=== PATIENT | female | born 1935 | race Caucasian/White ===

== ENCOUNTER 2022-05-14 04:00 | Inpatient (IN) | payer OTHER, BC ==
[2022-05-10 10:45] VITALS: BMI 28.8
[2022-05-14] MEDS ORDERED: THROMBIN (BOVINE) 20,000 UNIT VIAL TP ONE (07:21)
[2022-05-14] MEDS ORDERED: BUPIVACAINE HCL/PF 0.5% (5MG/ML) 10 ML VIAL ONE (07:22)
[2022-05-14] MEDS ORDERED: GENTAMICIN SO4 80 MG/2 ML VIAL ONE (07:22)
[2022-05-14] MEDS ORDERED: VANCOMYCIN 1,000 MG VIAL (RESTRICTED TO ID ONLY) ONE ×2 (07:22→08:21)
[2022-05-14] MEDS ORDERED: BUPIVACAINE LIPOSOME/PF (EXPAREL) 266 MG/20 ML VIAL ONE (07:22)
[2022-05-14] MEDS ORDERED: LIDOCAINE 1%/EPI 1:100000 (20 ML MULTI DOSE VIAL) ONE (07:22)
[2022-05-14] MEDS ORDERED: ceFAZolin SODIUM 1 GM VIAL IVPB ONE ×2 (08:02→08:40)
[2022-05-14] MEDS ORDERED: VANCOMYCIN 1 GM in D5W (PRE-DOCKED) 1,000 MG/250 ML IVPB ONE ×3 (08:02→09:54)
[2022-05-14] MEDS ORDERED: THROMBIN (BOVINE) 5,000 UNIT VIAL TP ONE ×2 (08:02→09:30)
[2022-05-14] MEDS ORDERED: HYDROGEN PEROXIDE 473 ML PO ONE ×2 (08:03→09:52)
[2022-05-14] MEDS ORDERED: GENTAMICIN SO4 80 MG/2 ML VIAL IVPB ONE ×2 (08:03→09:52)
[2022-05-14] MEDS ORDERED: PROMETHAZINE HCL 25 MG/1 ML VIAL IVPUSH PRN (08:05)
[2022-05-14] MEDS ORDERED: ONDANSETRON 4 MG/2 ML VIAL IVPUSH PRN ×3 (08:05→11:47)
[2022-05-14] MEDS ORDERED: DEXAMETHASONE SOD PHOSPHATE 4 MG/1 ML VIAL IVPUSH PRN (08:05)
[2022-05-14] MEDS ORDERED: PROMETHAZINE HCL 25 MG/1 ML VIAL IVPB PRN (08:05)
[2022-05-14] MEDS ORDERED: PROPOFOL 20 ML ONE ×2 (08:09)
[2022-05-14] MEDS ORDERED: MIDAZOLAM HCL 2 MG/2 ML SINGLE DOSE VIAL ONE (08:09)
[2022-05-14] MEDS ORDERED: ROCURONIUM BROMIDE 50 MG/5 ML SYRINGE ONE (08:09)
[2022-05-14] MEDS ORDERED: ceFAZolin SODIUM 1 GM VIAL ONE ×2 (08:10→17:42)
[2022-05-14] MEDS ORDERED: SODIUM CHLORIDE 0.9% P/F 10 ML VIAL IJ ONE ×2 (08:10→08:11)
[2022-05-14] MEDS ORDERED: LIDOCAINE HCL/PF 2% SDV 5ML VIAL ONE (08:10)
[2022-05-14] MEDS ORDERED: LACTATED RINGERS SOLUTION 1,000 ML IV SCH (08:15)
[2022-05-14] MEDS ORDERED: HYDROmorphone *PCA* 10MG/50ML DISP.SYRIN PCA SCH (08:15)
[2022-05-14 08:21] LABS: INR 1.2 (0.83-1.09); PROTHROMBIN TIME (PATIENT) 13.8 SEC (9.7-13.0)
[2022-05-14 08:24] LABS: ACTIVATED PTT 26.7 SECONDS (25.2-36.5)
[2022-05-14] MEDS ORDERED: TRANEXAMIC ACID 1000 MG/10 ML VIAL ONE (08:41)
[2022-05-14] MEDS ORDERED: BUPIVACAINE HCL/PF 0.5% (5MG/ML) 10 ML VIAL IJ ONE ×2 (09:52→11:00)
[2022-05-14] MEDS ORDERED: BUPIVACAINE LIPOSOME/PF (EXPAREL) 266 MG/20 ML VIAL NR ONE ×2 (09:52→11:00)
[2022-05-14] MEDS ORDERED: NEOSTIGMINE METHYLSULFATE 0.5 MG/1 ML - 10 ML MDV ONE (10:49)
[2022-05-14] MEDS ORDERED: GLYCOPYRROLATE 0.2 MG/1 ML VIAL ONE (10:49)
[2022-05-14] MEDS ORDERED: HYDROmorphone *PCA* 10MG/50ML DISP.SYRIN ONE (11:24)
[2022-05-14] MEDS ORDERED: diphenhydrAMINE HCL 25 MG CAPSULE (FP) PO PRN (11:47)
[2022-05-14] MEDS ORDERED: oxyCODONE HCL 5 MG TABLET PO PRN (11:47)
[2022-05-14] MEDS ORDERED: morphine SULFATE 4 MG/ML VIAL IVPUSH PRN (11:47)
[2022-05-14] MEDS ORDERED: HEPARIN NA (PORCINE) 5,000 UNITS/ML 1ML VIAL SQ SCH (12:00)
[2022-05-14] MEDS: DOCUSATE SODIUM 100 MG CAPSULE (FP) PO SCH ×2 (14:10→22:02)
[2022-05-14] MEDS ORDERED: DEXTROSE 5%-WATER - 50 ML IVPB ONE (17:42)
[2022-05-14] MEDS: oxyCODONE HCL 5 MG TABLET PO PRN ×2 (18:14→22:07)
[2022-05-14] MEDS: CEFAZOLIN 1 GM in DEXTROSE 5%-WATER - 1 GM/50 ML IVPB IVPB SCH (18:14)
[2022-05-14] MEDS ORDERED: PATIENT'S OWN MEDICATION (NON-FORMULARY) (Pravastatin Sodium 20 MG Tablet) PO SCH (22:00)
[2022-05-14] MEDS: metoPROLOL SUCCINATE 25 MG TAB.SR.24H (FP) PO SCH (22:01)
[2022-05-14] MEDS: ROSUVASTATIN CA 10 MG TABLET PO SCH (22:02)
[2022-05-15] MEDS ORDERED: ceFAZolin SODIUM 1 GM VIAL ONE ×3 (03:40→17:40)
[2022-05-15] MEDS ORDERED: DEXTROSE 5%-WATER - 50 ML IVPB ONE ×3 (03:41→17:40)
[2022-05-15] MEDS: CEFAZOLIN 1 GM in DEXTROSE 5%-WATER - 1 GM/50 ML IVPB IVPB SCH ×3 (03:54→17:56)
[2022-05-15] MEDS: HEPARIN NA (PORCINE) 5,000 UNITS/ML 1ML VIAL SQ SCH ×3 (06:28→22:10)
[2022-05-15] MEDS: DOCUSATE SODIUM 100 MG CAPSULE (FP) PO SCH ×3 (06:28→22:11)
[2022-05-15] MEDS: oxyCODONE HCL 5 MG TABLET PO PRN ×2 (07:49→15:16)
[2022-05-15 09:04] LABS: HEMATOCRIT 33.6 % (32.4-45.2); MCH 28.4 pg (25.7-33.7); MCHC 32.7 g/dl (32.0-36.0); MEAN CELL VOLUME 86.6 fl (80-96); PLATELET COUNT 258 10^3/uL (134-434); RBC 3.87 M/mm3 (3.60-5.2); RDW 17.5 % (11.6-15.6); WHITE BLOOD COUNT 12.5 K/mm3 (4.0-10.0)
[2022-05-15] MEDS: FERROUS SO4 325 MG TABLET (FP) PO SCH (09:21)
[2022-05-15] MEDS: LOSARTAN POTASSIUM 50 MG TABLET PO SCH (09:21)
[2022-05-15] MEDS: metoPROLOL SUCCINATE 25 MG TAB.SR.24H (FP) PO SCH ×2 (09:21→22:10)
[2022-05-15] MEDS: amLODIPine BESYLATE 5 MG TABLET (FP) PO SCH (09:21)
[2022-05-15] MEDS: FOLIC ACID 1 MG TABLET (FP) PO SCH (09:21)
[2022-05-15 09:33] LABS: BLOOD UREA NITROGEN 23.1 mg/dL (7-18)
[2022-05-15 09:36] LABS: CREATININE 0.9 mg/dL (0.55-1.3)
[2022-05-15] MEDS ORDERED: PATIENT'S OWN MEDICATION (NON-FORMULARY) (Losartan Potassium 100 MG) PO SCH (10:00)
[2022-05-15 11:54] LABS: ALBUMIN 3.5 g/dl (3.4-5.0)
[2022-05-15 11:58] LABS: BILIRUBIN,TOTAL 0.4 mg/dL (0.2-1); TOT PROT 7.5 g/dl (6.4-8.2)
[2022-05-15] MEDS ORDERED: SODIUM CHLORIDE 500 ML IV STA (17:15)
[2022-05-15] MEDS ORDERED: WARFARIN SODIUM 5 MG PO SCH (22:00)
[2022-05-15] MEDS: ROSUVASTATIN CA 10 MG TABLET PO SCH (22:10)
[2022-05-16] MEDS: DOCUSATE SODIUM 100 MG CAPSULE (FP) PO SCH (05:42)
[2022-05-16 06:54] VITALS: BP 145/84; PULSE 88; RESP 17; TEMP 98.3
[2022-05-16 09:09] LABS: BASO % 0.1 % (0-2.0); HEMATOCRIT 34.6 % (32.4-45.2); HEMOGLOBIN 11.3 GM/dL (10.7-15.3); LYMPH % 4.1 % (8-40); MCHC 32.6 g/dl (32.0-36.0); MEAN CELL VOLUME 85.9 fl (80-96); MEAN PLT VOLUME 7.8 fl (7.5-11.1); MONO % 6.4 % (3.8-10.2); NEUT % 89.4 % (42.8-82.8); PLATELET COUNT 256 10^3/uL (134-434); RBC 4.03 M/mm3 (3.60-5.2); RDW 17.6 % (11.6-15.6); WHITE BLOOD COUNT 14.5 K/mm3 (4.0-10.0)
[2022-05-16] MEDS: oxyCODONE HCL 5 MG TABLET PO PRN (09:36)
[2022-05-16] MEDS: LOSARTAN POTASSIUM 50 MG TABLET PO SCH (09:38)
[2022-05-16] MEDS: FERROUS SO4 325 MG TABLET (FP) PO SCH (09:39)
[2022-05-16] MEDS: FOLIC ACID 1 MG TABLET (FP) PO SCH (09:39)
[2022-05-16] MEDS: amLODIPine BESYLATE 5 MG TABLET (FP) PO SCH (09:39)
[2022-05-16] MEDS: metoPROLOL SUCCINATE 25 MG TAB.SR.24H (FP) PO SCH (09:40)
[2022-05-16 09:57] LABS: CALCIUM 9.3 mg/dL (8.5-10.1)
[2022-05-16 09:58] LABS: ALBUMIN 3.5 g/dl (3.4-5.0); BLOOD UREA NITROGEN 13.1 mg/dL (7-18)
[2022-05-16 10:01] LABS: CREATININE 0.8 mg/dL (0.55-1.3)
[2022-05-16 10:03] LABS: BILIRUBIN,TOTAL 0.8 mg/dL (0.2-1)
[2022-05-16] MEDS ORDERED: WARFARIN NA 5 MG TABLET PO SCH (18:00)
== END 2022-05-16 13:56 | disposition home health service (06) | DRG 27 ==
LOC: EDUNIT# 04:00 → J2C 04:00 → EDBD 08:00 → J8W 13:23
PROVIDERS: ADMIT Neurological Surgery; ATTEND Nurse Practitioner Acute Care
PROC: 00BX0ZZ Excision of Thoracic Spinal Cord, Open Approach (ICD-10-PCS; 2022-05-14)
PROC: 00QT0ZZ Repair Spinal Meninges, Open Approach (ICD-10-PCS; 2022-05-14)
PROC: 0RG6071 Fusion of Thoracic Vertebral Joint with Autologous Tissue Substitute, Posterior Approach, Posterior Column, Open Approach (ICD-10-PCS; 2022-05-14)
PROC: 01N80ZZ Release Thoracic Nerve, Open Approach (ICD-10-PCS; 2022-05-14)
PROC: 4A1004G Monitoring of Central Nervous Electrical Activity, Intraoperative, Open Approach (ICD-10-PCS; 2022-05-14)
PROC: 00U20KZ Supplement Dura Mater with Nonautologous Tissue Substitute, Open Approach (ICD-10-PCS; principal; 2022-05-14 08:00)
DX: D32.1 Benign neoplasm of spinal meninges (principal); N18.30 Chronic kidney disease, stage 3 unspecified; M43.8X9 Other specified deforming dorsopathies, site unspecified; E78.5 Hyperlipidemia, unspecified; I25.10 Atherosclerotic heart disease of native coronary artery without angina pectoris; I12.9 Hypertensive chronic kidney disease with stage 1 through stage 4 chronic kidney disease, or unspecified chronic kidney disease; N18.9 Chronic kidney disease, unspecified; I48.91 Unspecified atrial fibrillation; I27.20 Pulmonary hypertension, unspecified; G89.18 Other acute postprocedural pain
CPT/HCPCS: 36415; 72128-TC; 76000-TC-FY; 80048; 80053; 83735; 85025; 85027; 85610; 85730; 86850; 86900; 86901; 88307-TC; 88331-TC; 94010; 94760; 97116-GP; 97161-GP; J1644

== ENCOUNTER 2022-05-20 12:46 | Inpatient (IN) | payer OTHER, BC ==
[2022-05-20 13:46] LABS: BASO % 0.1 % (0-2.0); EOS % 0.1 % (0-4.5); LYMPH % 5.2 % (8-40); MCHC 32.5 g/dl (32.0-36.0); MEAN CELL VOLUME 86.3 fl (80-96); MEAN PLT VOLUME 7.8 fl (7.5-11.1); MONO % 6.2 % (3.8-10.2); NEUT % 88.4 % (42.8-82.8); PLATELET COUNT 285 10^3/uL (134-434); RBC 4.28 M/mm3 (3.60-5.2); RDW 17.2 % (11.6-15.6); WHITE BLOOD COUNT 19.1 K/mm3 (4.0-10.0)
[2022-05-20 13:54] LABS: INR 1.55 (0.83-1.09); PROTHROMBIN TIME (PATIENT) 17.9 SEC (9.7-13.0)
[2022-05-20 13:57] LABS: ACTIVATED PTT 25.3 SECONDS (25.2-36.5)
[2022-05-20 14:12] LABS: CREATININE 3.9 mg/dL (0.55-1.3)
[2022-05-20 14:13] LABS: BILIRUBIN,TOTAL 0.9 mg/dL (0.2-1); TOT PROT 7.3 g/dl (6.4-8.2)
[2022-05-20 14:20] LABS: LACTIC ACID 3.5 mmol/L (0.4-2.0)
[2022-05-20 14:21] LABS: ALBUMIN 2.6 g/dl (3.4-5.0); BLOOD UREA NITROGEN 58.4 mg/dL (7-18); CALCIUM 7.9 mg/dL (8.5-10.1)
[2022-05-20] MEDS ORDERED: SODIUM CHLORIDE 1,000 ML IV STA (14:45)
[2022-05-20] MEDS ORDERED: ACETAMINOPHEN 325 MG TABLET (FP) PO PRN (15:26)
[2022-05-20 16:14] LABS: EPI CELLS 5 /uL (0-25.1); HYALINE CASTS 3 /uL (0-3.1); PH,URINE 5.5 (5.0-8.0); URINE APPEARANCE CLEAR; URINE BACTERIA 0 /uL (0-1359); URINE BILIRUBIN NEGATIVE (NEGATIVE); URINE COLOR YELLOW; URINE GLUCOSE (UA) NEGATIVE (NEGATIVE); URINE KETONE NEGATIVE (NEGATIVE); URINE LEUK ESTERASE NEGATIVE (NEGATIVE); URINE NITRITE NEGATIVE (NEGATIVE); URINE PROTEIN 1+ (NEGATIVE); URINE UROBILINOGEN 0.2 mg/dL (0.2-1.0); URINE WBC 7 /uL (0-25.8)
[2022-05-20] MEDS ORDERED: VANCOMYCIN 1 GM in D5W (PRE-DOCKED) 1,000 MG/250 ML IVPB ONE (16:15)
[2022-05-20] MEDS ORDERED: PIPERACILLIN/TAZOB 4.5 GM 4.5 GM in DEXTROSE 5%-WATER 100 ML IVPB ONE (16:18)
[2022-05-20 16:20] LABS: URINE RBC 53.7 /uL (0-23.9)
[2022-05-20] MEDS ORDERED: PIPERACILLIN/TAZOB 4.5 GM 4.5 GM/100 ML BAG IVPB ONE (16:21)
[2022-05-20] MEDS ORDERED: VANCOMYCIN/WATER FOR INJ (PEG) 1,000 MG/200 ML BAG IVPB ONE (16:21)
[2022-05-20] MEDS: INSULIN SLIDING SCALE (NOVOLOG) 1 VIAL SQ SCH ×2 (16:27→22:54)
[2022-05-20] MEDS ORDERED: SODIUM CHLORIDE 1,000 ML IV SCH (17:15)
[2022-05-20] MEDS ORDERED: WARFARIN SODIUM 5 MG PO SCH (17:45)
[2022-05-20] MEDS: SODIUM CHLORIDE 1,000 ML IV SCH (17:56)
[2022-05-20] MEDS ORDERED: METOPROLOL TARTRATE 5 MG/5 ML VIAL IVPUSH PRN (19:26)
[2022-05-20 20:31] LABS: LACTIC ACID 3.2 mmol/L (0.4-2.0)
[2022-05-20 21:45] LABS: BLOOD UREA NITROGEN 56.4 mg/dL (7-18)
[2022-05-20 21:48] LABS: CREATININE 2.8 mg/dL (0.55-1.3)
[2022-05-20 22:28] VITALS: BMI 28.4
[2022-05-20] MEDS ORDERED: ACETAMINOPHEN 325 MG TABLET (FP) ONE (22:47)
[2022-05-20] MEDS ORDERED: ATORVASTATIN CA 10 MG TABLET (FP) ONE (22:47)
[2022-05-20] MEDS ORDERED: DOCUSATE SODIUM 100 MG CAPSULE (FP) PO ONE (22:47)
[2022-05-20] MEDS: ATORVASTATIN CA 10 MG TABLET (FP) PO SCH (22:54)
[2022-05-20] MEDS: DOCUSATE SODIUM 100 MG CAPSULE (FP) PO SCH (22:54)
[2022-05-20] MEDS ORDERED: POTASSIUM CHLORIDE ORAL LIQUID 20 MEQ/15 ML PO ONE (23:02)
[2022-05-21] MEDS ORDERED: PIPERACILLIN/TAZOB 2.25 GM 2.25 GM/50 ML BAG IVPB ONE (04:01)
[2022-05-21] MEDS ORDERED: POTASSIUM CHLORIDE ORAL LIQUID 20 MEQ/15 ML ONE (04:01)
[2022-05-21] MEDS: PIPERACILLIN/TAZOB 2.25 GM 2.25 GM in DEXTROSE 5%-WATER - 50 ML IVPB SCH ×4 (04:09→20:00)
[2022-05-21] MEDS: SODIUM CHLORIDE 1,000 ML IV SCH ×2 (04:54→22:00)
[2022-05-21 06:46] LABS: HEMATOCRIT 30.7 % (32.4-45.2); MCHC 32.6 g/dl (32.0-36.0); MEAN CELL VOLUME 85.7 fl (80-96); MEAN PLT VOLUME 7.7 fl (7.5-11.1); PLATELET COUNT 221 10^3/uL (134-434); RBC 3.58 M/mm3 (3.60-5.2); RDW 17.5 % (11.6-15.6); WHITE BLOOD COUNT 16.6 K/mm3 (4.0-10.0)
[2022-05-21] MEDS: INSULIN SLIDING SCALE (NOVOLOG) 1 VIAL SQ SCH ×4 (06:47→23:12)
[2022-05-21] MEDS: DOCUSATE SODIUM 100 MG CAPSULE (FP) PO SCH ×3 (06:47→22:56)
[2022-05-21 07:05] LABS: CHLORIDE 106 mmol/L (98-107); SODIUM 138 mmol/L (136-145)
[2022-05-21 07:08] LABS: ALBUMIN 2.1 g/dl (3.4-5.0); ANION GAP 11 MMOL/L (8-16); BLOOD UREA NITROGEN 52.9 mg/dL (7-18); CO2 21 mmol/L (21-32); GLUCOSE,RANDOM 105 mg/dL (74-106)
[2022-05-21 07:11] LABS: SGOT/AST 69 U/L (15-37); SGPT/ALT 29 U/L (13-61)
[2022-05-21 07:13] LABS: BILIRUBIN,TOTAL 0.7 mg/dL (0.2-1); TOT PROT 5.7 g/dl (6.4-8.2)
[2022-05-21 07:14] LABS: ALK PHOS 165 U/L (45-117)
[2022-05-21 07:31] LABS: CALCIUM 6.6 mg/dL (8.5-10.1)
[2022-05-21] MEDS ORDERED: CALCIUM GLUCONATE 10% - 1,000 MG/10 ML VIAL IVPUSH ONE (07:58)
[2022-05-21 08:55] LABS: ANISOCYTOSIS 0; HELMET CELLS 0; HOWELL-JOLLY BODIES 0; MACROCYTOSIS 0; OVALOCYTE 0; ROULEAU 0; SICKELED CELLS 0; TARGET CELLS 0; TEAR DROP CELLS 0; TOXIC GRANULATION 0
[2022-05-21] MEDS ORDERED: PIPERACILLIN/TAZOBACTAM 2.25 GM VIAL IVPB ONE (09:31)
[2022-05-21] MEDS ORDERED: DEXTROSE 5%-WATER - 50 ML IVPB ONE (09:32)
[2022-05-21] MEDS: PANTOPRAZOLE 40 MG TABLET PO SCH (10:06)
[2022-05-21] MEDS ORDERED: ENOXAPARIN NA (PORCINE) 80 MG/0.8 ML DISP.SYRIN SQ ONE (16:29)
[2022-05-21] MEDS ORDERED: METOPROLOL TARTRATE 5 MG/5 ML VIAL IVPUSH PRN (16:40)
[2022-05-21] MEDS: WARFARIN NA 5 MG TABLET PO SCH (17:14)
[2022-05-21] MEDS: Methylnaltrexone Bromide 12 MG/0.6 ML KIT SQ SCH (17:37)
[2022-05-21] MEDS: metoPROLOL SUCCINATE 25 MG TAB.SR.24H (FP) PO SCH (22:50)
[2022-05-21] MEDS: ATORVASTATIN CA 10 MG TABLET (FP) PO SCH (22:57)
[2022-05-22] MEDS: PIPERACILLIN/TAZOB 2.25 GM 2.25 GM in DEXTROSE 5%-WATER - 50 ML IVPB SCH ×3 (01:10→09:48)
[2022-05-22] MEDS: SODIUM CHLORIDE 1,000 ML IV SCH ×2 (01:45→13:53)
[2022-05-22] MEDS: DOCUSATE SODIUM 100 MG CAPSULE (FP) PO SCH ×2 (06:16→13:54)
[2022-05-22 07:41] LABS: BASO % 0.2 % (0-2.0); EOS % 0.4 % (0-4.5); LYMPH % 4.9 % (8-40); MCH 28.3 pg (25.7-33.7); MCHC 33.3 g/dl (32.0-36.0); MEAN PLT VOLUME 7.9 fl (7.5-11.1); MONO % 5.8 % (3.8-10.2); NEUT % 88.7 % (42.8-82.8); PLATELET COUNT 237 10^3/uL (134-434); RBC 3.53 M/mm3 (3.60-5.2); RDW 17.2 % (11.6-15.6); WHITE BLOOD COUNT 16.2 K/mm3 (4.0-10.0)
[2022-05-22 08:08] LABS: ALBUMIN 1.8 g/dl (3.4-5.0); BLOOD UREA NITROGEN 29.3 mg/dL (7-18); MAGNESIUM 2.1 mg/dL (1.8-2.4)
[2022-05-22 08:10] LABS: BILIRUBIN,TOTAL 0.4 mg/dL (0.2-1); CALCIUM 7.2 mg/dL (8.5-10.1); TOT PROT 5.4 g/dl (6.4-8.2)
[2022-05-22 08:11] LABS: CREATININE 1.1 mg/dL (0.55-1.3); PHOSPHOROUS 1.9 mg/dL (2.5-4.9)
[2022-05-22] MEDS: INSULIN SLIDING SCALE (NOVOLOG) 1 VIAL SQ SCH ×3 (09:37→16:16)
[2022-05-22 09:39] LABS: ACTIVATED PTT 29.2 SECONDS (25.2-36.5)
[2022-05-22 09:41] LABS: INR 2.58 (0.83-1.09)
[2022-05-22] MEDS: metoPROLOL SUCCINATE 25 MG TAB.SR.24H (FP) PO SCH ×2 (09:49→22:09)
[2022-05-22] MEDS: PANTOPRAZOLE 40 MG TABLET PO SCH (09:49)
[2022-05-22] MEDS ORDERED: POTASSIUM PHOSPHATE 30 MM in SODIUM CHLORIDE 500 ML IVPB ONE (13:00)
[2022-05-22] MEDS: Methylnaltrexone Bromide 12 MG/0.6 ML KIT SQ SCH ×2 (13:54→14:09)
[2022-05-22] MEDS: NAPH,MB-DB/K PH,MBDB POWDER PACKET PO SCH ×2 (13:56→22:17)
[2022-05-22] MEDS: PIPERACILLIN/TAZOB 3.375 GM 3.375 GM in DEXTROSE 5%-WATER - 50 ML IVPB SCH (17:31)
[2022-05-22] MEDS: WARFARIN NA 5 MG TABLET PO SCH (17:31)
[2022-05-23] MEDS: DOCUSATE SODIUM 100 MG CAPSULE (FP) PO SCH ×4 (01:18→21:48)
[2022-05-23] MEDS: ATORVASTATIN CA 10 MG TABLET (FP) PO SCH ×2 (01:18→21:48)
[2022-05-23] MEDS: INSULIN SLIDING SCALE (NOVOLOG) 1 VIAL SQ SCH ×5 (02:07→21:56)
[2022-05-23] MEDS: PIPERACILLIN/TAZOB 3.375 GM 3.375 GM in DEXTROSE 5%-WATER - 50 ML IVPB SCH ×3 (02:07→17:52)
[2022-05-23] MEDS: NAPH,MB-DB/K PH,MBDB POWDER PACKET PO SCH ×3 (05:44→14:08)
[2022-05-23 07:40] LABS: HEMATOCRIT 30.6 % (32.4-45.2); HEMOGLOBIN 10.1 GM/dL (10.7-15.3); MEAN CELL VOLUME 84.9 fl (80-96); MEAN PLT VOLUME 7.3 fl (7.5-11.1); PLATELET COUNT 273 10^3/uL (134-434); RBC 3.61 M/mm3 (3.60-5.2); RDW 17.9 % (11.6-15.6); WHITE BLOOD COUNT 18.4 K/mm3 (4.0-10.0)
[2022-05-23 07:46] LABS: INR 3.38 (0.83-1.09); PROTHROMBIN TIME (PATIENT) 39.4 SEC (9.7-13.0)
[2022-05-23 07:49] LABS: ACTIVATED PTT 22.8 SECONDS (25.2-36.5)
[2022-05-23 08:14] LABS: CALCIUM 7.4 mg/dL (8.5-10.1)
[2022-05-23 08:15] LABS: ALBUMIN 1.8 g/dl (3.4-5.0); BLOOD UREA NITROGEN 17.4 mg/dL (7-18)
[2022-05-23 08:18] LABS: CREATININE 0.8 mg/dL (0.55-1.3); PHOSPHOROUS 2.3 mg/dL (2.5-4.9)
[2022-05-23 08:19] LABS: BILIRUBIN,TOTAL 0.7 mg/dL (0.2-1); TOT PROT 5.6 g/dl (6.4-8.2)
[2022-05-23 09:06] LABS: ANISOCYTOSIS 0; HELMET CELLS 0; HOWELL-JOLLY BODIES 0; MACROCYTOSIS 0; OVALOCYTE 0; ROULEAU 0; SICKELED CELLS 0; TARGET CELLS 0; TEAR DROP CELLS 0; TOXIC GRANULATION 0
[2022-05-23] MEDS: metoPROLOL SUCCINATE 25 MG TAB.SR.24H (FP) PO SCH ×2 (09:46→21:49)
[2022-05-23] MEDS: PANTOPRAZOLE 40 MG TABLET PO SCH (09:51)
[2022-05-23] MEDS: Methylnaltrexone Bromide 12 MG/0.6 ML KIT SQ SCH (09:51)
[2022-05-23 11:53] VITALS: RESP 20
[2022-05-23 13:27] LABS: CHLORIDE 108 mmol/L (98-107); SODIUM 141 mmol/L (136-145)
[2022-05-23 13:29] LABS: ANION GAP 11 MMOL/L (8-16); CALCIUM 7.7 mg/dL (8.5-10.1); CO2 22 mmol/L (21-32)
[2022-05-23] MEDS: SODIUM CHLORIDE 1,000 ML IV SCH (13:29)
[2022-05-23 13:30] LABS: BLOOD UREA NITROGEN 15.2 mg/dL (7-18); GLUCOSE,RANDOM 111 mg/dL (74-106)
[2022-05-23 13:33] LABS: CREATININE 0.8 mg/dL (0.55-1.3)
[2022-05-23] MEDS ORDERED: WARFARIN NA 2 MG TABLET PO ONE (18:00)
[2022-05-23] MEDS ORDERED: LACTOBACILLUS ACIDOPHILUS 1 TABLET PO SCH (22:00)
[2022-05-23] MEDS ORDERED: PIPERACILLIN/TAZOBACTAM 3.375 GM VIAL IVPB ONE (23:44)
[2022-05-24] MEDS: PIPERACILLIN/TAZOB 3.375 GM 3.375 GM in DEXTROSE 5%-WATER - 50 ML IVPB SCH ×3 (03:16→17:00)
[2022-05-24] MEDS: DOCUSATE SODIUM 100 MG CAPSULE (FP) PO SCH ×3 (06:16→22:17)
[2022-05-24] MEDS: NAPH,MB-DB/K PH,MBDB POWDER PACKET PO SCH (06:16)
[2022-05-24] MEDS: INSULIN SLIDING SCALE (NOVOLOG) 1 VIAL SQ SCH ×2 (07:00→12:29)
[2022-05-24 07:52] LABS: BASO % 0.3 % (0-2.0); EOS % 0.7 % (0-4.5); HEMATOCRIT 30.9 % (32.4-45.2); HEMOGLOBIN 10.1 GM/dL (10.7-15.3); LYMPH % 6.7 % (8-40); MCH 28.1 pg (25.7-33.7); MCHC 32.8 g/dl (32.0-36.0); MEAN CELL VOLUME 85.8 fl (80-96); MEAN PLT VOLUME 7.5 fl (7.5-11.1); MONO % 5.1 % (3.8-10.2); NEUT % 87.2 % (42.8-82.8); PLATELET COUNT 316 10^3/uL (134-434); RBC 3.61 M/mm3 (3.60-5.2); RDW 17.7 % (11.6-15.6); WHITE BLOOD COUNT 14.8 K/mm3 (4.0-10.0)
[2022-05-24 08:22] LABS: ALBUMIN 1.8 g/dl (3.4-5.0); BLOOD UREA NITROGEN 14.2 mg/dL (7-18); CALCIUM 7.8 mg/dL (8.5-10.1)
[2022-05-24 08:23] LABS: MAGNESIUM 1.6 mg/dL (1.8-2.4)
[2022-05-24 08:25] LABS: CREATININE 0.8 mg/dL (0.55-1.3); PHOSPHOROUS 2.5 mg/dL (2.5-4.9)
[2022-05-24 08:26] LABS: BILIRUBIN,TOTAL 0.5 mg/dL (0.2-1); TOT PROT 5.4 g/dl (6.4-8.2)
[2022-05-24 09:02] LABS: INR 3.07 (0.83-1.09); PROTHROMBIN TIME (PATIENT) 35.7 SEC (9.7-13.0)
[2022-05-24 09:04] LABS: ACTIVATED PTT 29.2 SECONDS (25.2-36.5)
[2022-05-24] MEDS: metoPROLOL SUCCINATE 25 MG TAB.SR.24H (FP) PO SCH ×2 (10:09→22:13)
[2022-05-24] MEDS: PANTOPRAZOLE 40 MG TABLET PO SCH (10:09)
[2022-05-24] MEDS ORDERED: MAGNESIUM SULF 50% (8.12 MEQ/2 ML-1 GM VIAL) IVPB ONE (14:58)
[2022-05-24] MEDS: SODIUM CHLORIDE 1,000 ML IV SCH (16:29)
[2022-05-24] MEDS ORDERED: SODIUM CHLORIDE 1,000 ML IV SCH (19:58)
[2022-05-24] MEDS ORDERED: METOPROLOL TARTRATE 5 MG/5 ML VIAL IVPUSH PRN (19:58)
[2022-05-24] MEDS ORDERED: APIXABAN 5 MG TABLET PO SCH (22:00)
[2022-05-24] MEDS: ATORVASTATIN CA 10 MG TABLET (FP) PO SCH (22:13)
[2022-05-24] MEDS: APIXABAN 5 MG TABLET PO SCH (22:14)
[2022-05-24] MEDS: LACTOBACILLUS ACIDOPHILUS 1 TABLET PO SCH (22:14)
[2022-05-25] MEDS ORDERED: PIPERACILLIN/TAZOB 3.375 GM 3.375 GM in DEXTROSE 5%-WATER - 50 ML IVPB SCH (02:00)
[2022-05-25] MEDS: DOCUSATE SODIUM 100 MG CAPSULE (FP) PO SCH ×3 (05:55→22:34)
[2022-05-25 08:02] LABS: HEMATOCRIT 30.1 % (32.4-45.2); HEMOGLOBIN 9.9 GM/dL (10.7-15.3); MCHC 32.7 g/dl (32.0-36.0); MEAN CELL VOLUME 85.5 fl (80-96); MEAN PLT VOLUME 7.3 fl (7.5-11.1); PLATELET COUNT 348 10^3/uL (134-434); RBC 3.52 M/mm3 (3.60-5.2); RDW 17.5 % (11.6-15.6); WHITE BLOOD COUNT 13.4 K/mm3 (4.0-10.0)
[2022-05-25 08:25] LABS: ALBUMIN 1.7 g/dl (3.4-5.0); BLOOD UREA NITROGEN 11.4 mg/dL (7-18); CALCIUM 7.7 mg/dL (8.5-10.1); MAGNESIUM 1.7 mg/dL (1.8-2.4)
[2022-05-25 08:28] LABS: CREATININE 0.7 mg/dL (0.55-1.3)
[2022-05-25] MEDS ORDERED: POTASSIUM CHLORIDE TABS 20 MEQ TABLET.ER (FP) PO ONE (08:29)
[2022-05-25 08:30] LABS: BILIRUBIN,TOTAL 0.5 mg/dL (0.2-1); TOT PROT 5.2 g/dl (6.4-8.2)
[2022-05-25] MEDS ORDERED: MAGNESIUM SULF 50% (8.12 MEQ/2 ML-1 GM VIAL) IVPB ONE (09:00)
[2022-05-25] MEDS: metoPROLOL SUCCINATE 25 MG TAB.SR.24H (FP) PO SCH ×2 (10:27→22:26)
[2022-05-25] MEDS: APIXABAN 5 MG TABLET PO SCH ×2 (10:27→22:27)
[2022-05-25] MEDS: PANTOPRAZOLE 40 MG TABLET PO SCH (10:27)
[2022-05-25 10:33] LABS: ANISOCYTOSIS 0; HELMET CELLS 0; HOWELL-JOLLY BODIES 0; MACROCYTOSIS 0; OVALOCYTE 0; ROULEAU 0; SICKELED CELLS 0; TARGET CELLS 0; TEAR DROP CELLS 0; TOXIC GRANULATION 0
[2022-05-25] MEDS: ACETAMINOPHEN 325 MG TABLET (FP) PO PRN (13:42)
[2022-05-25] MEDS: BANATROL PLUS POWDER PACKET PO SCH (22:27)
[2022-05-25] MEDS: ATORVASTATIN CA 10 MG TABLET (FP) PO SCH (22:28)
[2022-05-25] MEDS: LACTOBACILLUS ACIDOPHILUS 1 TABLET PO SCH (22:28)
[2022-05-25] MEDS: AMINO ACIDS/PROTEIN HYDROLYS 30 ML LIQUID.PKT PO SCH (22:34)
[2022-05-26] MEDS: BANATROL PLUS POWDER PACKET PO SCH ×3 (05:47→22:29)
[2022-05-26] MEDS: DOCUSATE SODIUM 100 MG CAPSULE (FP) PO SCH ×3 (05:47→22:29)
[2022-05-26] MEDS ORDERED: INSULIN (NOVOLOG) ASPART 100 UNITS/ML 10ML VIAL ONE (09:30)
[2022-05-26 10:07] LABS: BASO % 0.3 % (0-2.0); HEMATOCRIT 30.2 % (32.4-45.2); HEMOGLOBIN 9.8 GM/dL (10.7-15.3); LYMPH % 7.2 % (8-40); MCH 27.7 pg (25.7-33.7); MCHC 32.4 g/dl (32.0-36.0); MEAN CELL VOLUME 85.3 fl (80-96); MEAN PLT VOLUME 7.1 fl (7.5-11.1); MONO % 3.8 % (3.8-10.2); NEUT % 87.7 % (42.8-82.8); PLATELET COUNT 398 10^3/uL (134-434); RBC 3.54 M/mm3 (3.60-5.2); RDW 17.9 % (11.6-15.6); WHITE BLOOD COUNT 15.1 K/mm3 (4.0-10.0)
[2022-05-26 10:15] LABS: ALBUMIN 1.8 g/dl (3.4-5.0); BLOOD UREA NITROGEN 10.7 mg/dL (7-18); CALCIUM 7.8 mg/dL (8.5-10.1); MAGNESIUM 1.9 mg/dL (1.8-2.4)
[2022-05-26 10:18] LABS: CREATININE 0.7 mg/dL (0.55-1.3); PHOSPHOROUS 3.1 mg/dL (2.5-4.9)
[2022-05-26 10:20] LABS: BILIRUBIN,TOTAL 0.4 mg/dL (0.2-1); TOT PROT 5.6 g/dl (6.4-8.2)
[2022-05-26] MEDS: APIXABAN 5 MG TABLET PO SCH ×2 (10:28→22:29)
[2022-05-26] MEDS: PANTOPRAZOLE 40 MG TABLET PO SCH (10:28)
[2022-05-26] MEDS: metoPROLOL SUCCINATE 25 MG TAB.SR.24H (FP) PO SCH ×2 (10:28→22:29)
[2022-05-26] MEDS: AMINO ACIDS/PROTEIN HYDROLYS 30 ML LIQUID.PKT PO SCH (10:28)
[2022-05-26] MEDS ORDERED: ZINC OXIDE 20% TOPICAL OINTMENT 30 GM TUBE TP PRN (14:08)
[2022-05-26] MEDS: LACTOBACILLUS ACIDOPHILUS 1 TABLET PO SCH (22:29)
[2022-05-26] MEDS: ATORVASTATIN CA 10 MG TABLET (FP) PO SCH (22:29)
[2022-05-27] MEDS: ACETAMINOPHEN 325 MG TABLET (FP) PO PRN ×2 (06:00→13:50)
[2022-05-27] MEDS: BANATROL PLUS POWDER PACKET PO SCH ×3 (06:00→23:05)
[2022-05-27] MEDS: DOCUSATE SODIUM 100 MG CAPSULE (FP) PO SCH ×4 (06:06→23:08)
[2022-05-27] MEDS: AMINO ACIDS/PROTEIN HYDROLYS 30 ML LIQUID.PKT PO SCH (08:33)
[2022-05-27 09:22] LABS: BASO % 0.4 % (0-2.0); EOS % 0.8 % (0-4.5); HEMATOCRIT 28.5 % (32.4-45.2); HEMOGLOBIN 9.4 GM/dL (10.7-15.3); LYMPH % 8.6 % (8-40); MCHC 32.8 g/dl (32.0-36.0); MEAN CELL VOLUME 85.5 fl (80-96); MEAN PLT VOLUME 7.2 fl (7.5-11.1); MONO % 4.3 % (3.8-10.2); NEUT % 85.9 % (42.8-82.8); PLATELET COUNT 434 10^3/uL (134-434); RBC 3.34 M/mm3 (3.60-5.2); RDW 17.5 % (11.6-15.6)
[2022-05-27 09:53] LABS: ALBUMIN 1.8 g/dl (3.4-5.0); BLOOD UREA NITROGEN 12.1 mg/dL (7-18); CALCIUM 7.8 mg/dL (8.5-10.1); MAGNESIUM 1.8 mg/dL (1.8-2.4)
[2022-05-27 09:55] LABS: PHOSPHOROUS 3.3 mg/dL (2.5-4.9)
[2022-05-27 09:56] LABS: CREATININE 0.6 mg/dL (0.55-1.3)
[2022-05-27 09:57] LABS: BILIRUBIN,TOTAL 0.4 mg/dL (0.2-1); TOT PROT 5.5 g/dl (6.4-8.2)
[2022-05-27] MEDS: APIXABAN 5 MG TABLET PO SCH ×2 (10:38→23:08)
[2022-05-27] MEDS: metoPROLOL SUCCINATE 25 MG TAB.SR.24H (FP) PO SCH ×2 (10:38→23:05)
[2022-05-27] MEDS: PANTOPRAZOLE 40 MG TABLET PO SCH (10:38)
[2022-05-27] MEDS: ATORVASTATIN CA 10 MG TABLET (FP) PO SCH (23:05)
[2022-05-27] MEDS: LACTOBACILLUS ACIDOPHILUS 1 TABLET PO SCH (23:05)
[2022-05-28] MEDS: DOCUSATE SODIUM 100 MG CAPSULE (FP) PO SCH ×2 (05:52→13:16)
[2022-05-28] MEDS: BANATROL PLUS POWDER PACKET PO SCH ×2 (05:53→13:16)
[2022-05-28] MEDS: AMINO ACIDS/PROTEIN HYDROLYS 30 ML LIQUID.PKT PO SCH (10:35)
[2022-05-28] MEDS: APIXABAN 5 MG TABLET PO SCH (10:35)
[2022-05-28] MEDS: metoPROLOL SUCCINATE 25 MG TAB.SR.24H (FP) PO SCH (10:36)
[2022-05-28] MEDS: PANTOPRAZOLE 40 MG TABLET PO SCH (10:36)
[2022-05-28 14:21] VITALS: BP 123/84; PULSE 108; TEMP 97.5
[2022-05-28] MEDS ORDERED: AMINO ACIDS/PROTEIN HYDROLYS 30 ML LIQUID.PKT PO SCH (17:30)
[2022-05-29] MEDS ORDERED: MULTIVIT-MINERALS ORAL LIQUID PO SCH (10:00)
== END 2022-05-28 17:50 | DRG 175 ==
LOC: JER 12:46 → EDUNIT# 15:30 → JERBED 15:30 → J4W 05-21 04:34 → J7W 05-24 13:07
PROVIDERS: ADMIT Internal Medicine; ATTEND Internal Medicine
DX: I26.99 Other pulmonary embolism without acute cor pulmonale (principal); J18.9 Pneumonia, unspecified organism; N17.9 Acute kidney failure, unspecified; E87.2 Acidosis; M62.82 Rhabdomyolysis; E87.1 Hypo-osmolality and hyponatremia; J98.11 Atelectasis; R57.9 Shock, unspecified; M96.843 Postprocedural seroma of a musculoskeletal structure following other procedure; Y83.9 Surgical procedure, unspecified as the cause of abnormal reaction of the patient, or of later complication, without mention of misadventure at the time of the procedure; E86.0 Dehydration; I48.91 Unspecified atrial fibrillation; I12.9 Hypertensive chronic kidney disease with stage 1 through stage 4 chronic kidney disease, or unspecified chronic kidney disease; N18.9 Chronic kidney disease, unspecified; E78.5 Hyperlipidemia, unspecified; I95.9 Hypotension, unspecified; E83.51 Hypocalcemia; K59.03 Drug induced constipation; R33.9 Retention of urine, unspecified; E87.6 Hypokalemia
CPT/HCPCS: 0241U-QW; 36415; 71045-TC-FY; 71275-TC; 72146-TC; 74018-TC-FY; 76775-TC; 80048; 80053; 81003; 82436; 82550; 82553; 82570; 82962; 83605; 83735; 84100; 84133; 84300; 84484; 85025; 85610; 85730; 86850; 86900; 86901; 87040; 87086; 87324; 87449; 93005; 93010; 93306-TC; 93970-TC; 94761; 97116-GP; 97162-GP; 99291; C9803-CS; E0186; G0480; Q9967; U0003; U0005